=== PATIENT | female | born 1980 | race Caucasian/White ===

== ENCOUNTER → 2016-08-19 | Outpatient (CLI) | payer OTHER ==
[~2016-08-19] MED LIST: AZIT250T81 PO; BENZ-22 PO; HYDR-3702 PO; METH4TAB27 PO; PRM25T PO; SULF-221 PO
[2016-08-19 14:16] VITALS: BP 128/87
--- NOTE | 2016-08-19 14:16 | Urgent Care T Sheet Gen (E) ---
Intake General Temperature (Fahrenheit): 98.1 Pulse: 88 Blood Pressure Systolic: 128 Blood Pressure Diastolic: 87 Respirations: 18 SPO2: 98 Description of Symptoms Patient presents with cough x 1 week. Denies any nasal congestion or productive cough. No fever. States her throat is irritated and causes coughing fits. 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 Been using Albuterol inhaler and been taking Tessalon pearls however has run out. History of Present Illness Allergies: Coded Allergies: No Known Drug Allergies (Unverified , 06/15/15) Home Meds Active Scripts Promethazine Hcl (Phenergan)25 Mg Tab25 Mg PO Q6H PRN NAUSEA #30 TAB Ref 0 Prov:BERTA ROSE DO 03/18/16 Hydrocodone/Acetaminophen ([place] 5mg/325mg)1 Each Tablet1-2 Tab PO Q6H PRN PAIN #30 TAB Ref 0 Prov:BERTA ROSE DO 03/18/16 Respiratory Constitutional Symptoms: No syptoms reported EENTM: No symptoms reported Respiratory: CoughNo Short of breath, No Wheezing Cardiovascular: No symptoms reported Gastrointestinal/Abdominal: No symptoms reported All Other Systems Reviewed Remaining Systems: All other systems reviewed with negative findings Past Jivqqgv-Fhchnc-Phyzaw Hx Patient's Social History Alcohol Use: Denies Use Smoking Status: Never smoker Recent foreign travel: No Surgeries/Hospitalizations Hospitalization/Surgery Hx: NoHX Respiratory Respiratory History: None Cardiovascular Cardiovascular History: None Neuro/Muscular Comment: Dizziness Reproductive System Sexually Transmitted Diseases: No Gastrointestinal GI/Endocrine History: None Diabetes Diabetes: No HEENT Impaired Vision: None Hearing Impaired: None Psychosocial Behavior Disorders: None Physical Exam Physical Exam General Appearance: WD/WN No apparent distress Eyes, Ears, Nose, Throat Ex: TMs normal Pharyngeal erythema (irritated with cobblestone appearance) Neck Exam: SuppleNo Lymphadenopathy Respiratory Exam: Lungs clear (dry cough throughout exam.) Normal breath sounds Cardiovascular Exam: Regular rate, rhythm Departure Urgent Care Impression Impression: Primary Impression: Cough Departure Disposition: 01 HOME OR SELF-CARE Condition: Stable Additional Instructions: Long discussion with patient regarding treatment. I have prescribed Medrol dose pack and Tessalon pearls for cough/inflammation. I have also prescribed Robitussin AC for nighttime use since that is when her cough is the most severe. I have started her on a Z-Pack based on length of illness and exposure to sick patients through work. Return as needed. No NSAIDs while on steroid Patient understands DC instructions. All questions were answered. Scripts Methylprednisolone (Medrol Dosepack)21 Tab/Pkt Tablet6 Tab PO DAILY Inflammation #1 PKT Ref 0 Take 6 tabs po on day 1 then decrease by 1 tab daily until packet is gone. Prov:SANDRA ZHAO 08/19/16 Benzonatate (Tessalon Perles)100 Mg [id number] Mg PO TID PRN COUGH #30 CAP Prov:SANDRA ZHAO 08/19/16 Azithromycin (Zithromax Z-Lauro)6 Tab/Pkt [id number] Mg PO SEE INSTRUCTIONS #6 TAB Ref 0 Day One: Take 2 tablets by mouth Days Two-Five: Take 1 tablet by mouth Prov:SANDRA ZHAO 08/19/16 End of report . SANDRA ZHAO Aug 19, 2016 14:16
== END ==
LOC: MHUC 14:01
PROVIDERS: ATTEND Physician Assistant
DX: R05 Cough (principal)
CPT/HCPCS: 99213